=== PATIENT | female | born 1975 | race African-American/Black ===

== ENCOUNTER 2019-08-26 21:11 | Emergency (ER) | payer OTHER, MEDICAID ==
[~2019-08-26] VITALS: Ht 167.6 cm; Wt 142.9 kg
[2019-08-26] MEDS ORDERED: VITAMIN D50000 UNIT PO (21:20)
[2019-08-26] MEDS ORDERED: ALLERGY (21:20)
[2019-08-26] MEDS ORDERED: NORCO 7.5-3251 EACH PO (22:01)
[2019-08-26 22:11] VITALS: BP 157/56
== END 2019-08-26 22:12 | disposition home or self-care (01) ==
LOC: M.ERS 21:11
DX: S93.602A Unspecified sprain of left foot, initial encounter (principal); Z98.890 Other specified postprocedural states; Z88.1 Allergy status to other antibiotic agents; W18.49XA Other slipping, tripping and stumbling without falling, initial encounter; Y93.01 Activity, walking, marching and hiking; Y92.89 Other specified places as the place of occurrence of the external cause; Y99.8 Other external cause status

== ENCOUNTER 2021-06-26 17:33 | Emergency (ER) | payer OTHER, MEDICAID ==
[~2021-06-26] VITALS: Ht 170.2 cm; Wt 115.7 kg
[~2021-06-26 17:33] MED LIST: ALLERGY; NORCO 7.5-3251 EACH PO; VITAMIN D50000 UNIT PO
[2021-06-26] MEDS ORDERED: MOBIC7.5 MG PO (18:44)
[2021-06-26] MEDS ORDERED: FLEXERIL PO (18:44)
[2021-06-26 18:49] VITALS: BP 139/88
== END 2021-06-26 18:50 | disposition home or self-care (01) ==
LOC: M.ERS 17:33
DX: S70.02XA Contusion of left hip, initial encounter (principal); Z98.890 Other specified postprocedural states; Z88.1 Allergy status to other antibiotic agents; Z88.8 Allergy status to other drugs, medicaments and biological substances; W01.0XXA Fall on same level from slipping, tripping and stumbling without subsequent striking against object, initial encounter; Y93.89 Activity, other specified; Y92.89 Other specified places as the place of occurrence of the external cause; Y99.8 Other external cause status